=== PATIENT | female | born 1980 | race Caucasian/White ===

== ENCOUNTER 2016-11-21 06:29 | Emergency (ER) | payer BC ==
[~2016-11-21] VITALS: Wt 64.0 kg
[~2016-11-21 06:29] MED LIST: ASC250 PO; FERR240T9 PO; FOLI-49 PO; PREN-39 PO; mvi
[2016-11-21] MEDS ORDERED: SOD CHLORIDE 0.9% 1,000 ML IV STA (06:57)
--- NOTE | 2016-11-21 06:57 | ERD ---
ER Documentation Chief Complaint Date/Time DATE: 11/21/16 TIME: 06:48 Chief Complaint epigastric pain onset last night with vomiting, no dysuria, no vag bleed HPI 36-year-old female ambulatory to the ED complaining of moderate, burning, nonradiating epigastric pain with nausea and multiple episodes of nonbloody, nonbilious emesis since last night. She is trying to get and received Clomid and a hCG. Denies dysuria, polyuria, hematuria or flank pain. No vaginal discharge or bleeding. Denies chest pain or palpitations. No shortness of breath or cough. No skin rash. No relieving or exacerbating factors. No fevers or chills. ROS All systems reviewed and are negative except as per history of present illness. Medications Home Meds Active Scripts Metoclopramide* (Reglan*) 10 Mg Tablet, 10 MG PO Q6 Y for NAUSEA AND/OR VOMITING , #6 TAB Prov:SYL BASURTO MD 11/21/16 Pantoprazole* (Protonix*) 40 Mg Tablet.dr, 40 MG PO DAILY, #10 TAB Prov:SYL BASURTO MD 11/21/16 Reported Medications Ascorbic Acid (Vitamin C) 250 Mg Tab, 250 MG PO DAILY, TAB 07/25/14 Ferrous Gluconate (Iron) 1 Tab Tablet, 1 TAB PO DAILY 07/25/14 Vits W-Ca,Fe,Fa(<1MG) ( Vitamins) 1 Tab Tablet, 1 TAB PO DAILY 07/25/14 Folic Acid* (Folic Acid*) 1 Mg Tablet, 1 MG PO DAILY 11/04/12 Discontinued Reported Medications [mvi] No Conflict Check 11/04/12 Allergies Allergies: Coded Allergies: No Known Allergy (Unverified , 11/21/16) PMhx/Soc Reviewed in chart. As per HPI. History of Surgery: No Anesthesia Reaction: No Hx Neurological Disorder: No Hx Respiratory Disorders: No Hx Cardiac Disorders: No Hx Psychiatric Problems: No Hx Miscellaneous Medical Probl: No Hx Alcohol Use: No Hx Substance Use: No Hx Tobacco Use: No Smoking Status: Never smoker FmHx No stroke or cancer. Physical Exam Vitals Vital Signs Date Time Temp Pulse Resp B/P Pulse Ox O2 Delivery O2 Flow Rate FiO2 11/21/16 11:25 88 16 116/73 100 Room Air 11/21/16 09:00 16 116/63 100 Room Air 11/21/16 06:34 98.2 101 20 145/67 100 Physical Exam Const: Alert, mild distress due to pain. Head: Atraumatic Eyes: Normal Conjunctiva ENT: Normal External Ears, Nose and Mouth. Neck: Full range of motion..~ No meningismus. Resp: Clear to auscultation bilaterally Cardio: Regular rate and rhythm, no murmurs Abd: Soft, mild epigastric tenderness but no rebound or guarding. No right or left lower quadrant tenderness. Skin: No petechiae or rashes Back: No midline or flank tenderness Ext: No cyanosis, or edema Neur: Awake and alert Psych: Normal Mood and Affect Result Diagram: 11/21/1670911/21/16709 Results 24 hrs Laboratory Tests Test 11/21/16 07:10 Alanine Aminotransferase (ALT/SGPT) 36IU/L Albumin 4.3g/dl Albumin/Globulin Ratio 1.22 Alkaline Phosphatase 77IU/L Anion Gap 17 Aspartate Amino Transf (AST/SGOT) 23IU/L Basophils # 0.010^3/ul Basophils % 0.1% Beta HCG, Quantitative 13.6mIU/ml Blood Urea Nitrogen 16mg/dl Calcium Level 9.1mg/dl Carbon Dioxide Level 26mmol/L Chloride Level 101mmol/L Creatinine 0.66mg/dl Direct Bilirubin 0.00mg/dl Eosinophils # 0.010^3/ul Eosinophils % 0.1% Globulin 3.50g/dl Glucose Level 113mg/dl Hematocrit 35.3% Hemoglobin 12.7g/dl Indirect Bilirubin 0.4mg/dl Lipase 88U/L Lymphocytes # 0.810^3/ul Lymphocytes % 6.8% Mean Corpuscular Hemoglobin 31.0pg Mean Corpuscular Hemoglobin Concent 35.9g/dl Mean Corpuscular Volume 86.3fl Mean Platelet Volume 7.5fl Monocytes # 0.410^3/ul Monocytes % 3.8% Neutrophils # 10.310^3/ul Neutrophils % 89.2% Nucleated Red Blood Cells # 0.010^3/ul Nucleated Red Blood Cells % 0.0/100WBC Platelet Count 01368^3/UL Potassium Level 3.7mmol/L Red Blood Count 4.0910^6/ul Red Cell Distribution Width 12.9% Sodium Level 140mmol/L Total Bilirubin 0.4mg/dl Total Protein 7.8g/dl Urine Bilirubin NEGATIVE Urine Clarity CLEAR Urine Color YELLOW Urine Glucose NEGATIVE% Urine Hemoglobin 1+ Urine Ketones 15 Urine Leukocyte Esterase NEGATIVE Urine Microscopic RBC 5-10/HPF Urine Microscopic WBC 2-5/HPF Urine Nitrite NEGATIVE Urine Specific [place] 1.020 Urine Squamous Epithelial Cells FEW Urine Total Protein NEGATIVE Urine Urobilinogen 0.2 E.U./dL Urine pH 7.0 White Blood Count 11.510^3/ul Current Medications Medications (Trade) Dose Ordered Sig/Ashley Route PRN Reason Start Time Stop Time Status Last Admin Dose Admin Sodium Chloride (NS) 1,000 ml @ 1,000 mls/hr Q1H STAT IV 11/21/16 06:57 11/21/16 07:56 DC 11/21/16 07:11 Pantoprazole (Protonix Iv) 40 mg ONCE ONCE IV 11/21/16 08:30 11/21/16 08:31 DC 11/21/16 08:50 Al Hydrox/Mg Hydrox/Simethicone (Mag-Al Plus) 30 ml ONCE ONCE PO 11/21/16 08:30 11/21/16 08:31 DC 11/21/16 08:50 Ondansetron HCl (Zofran Inj) 4 mg ONCE STAT IV 11/21/16 09:23 11/21/16 09:25 DC 11/21/16 09:27 Morphine Sulfate (morphine) 4 mg ONCE STAT IV 11/21/16 09:43 11/21/16 09:44 DC 11/21/16 09:50 IMAGING: PROCEDURE: US Abdomen, limited CLINICAL INDICATION: Right lower quadrant pain TECHNIQUE: Multiple real-time longitudinal and transverse images of the right lower quadrant were obtained. COMPARISON: None FINDINGS: The appendix is not identified. There are normal peristalsing bowel loops seen within the right lower quadrant. The right iliac vessels are patent. No lymphadenopathy is seen. No free fluid is noted within the right abdomen. IMPRESSION: The appendix was not visualized. No definite right lower quadrant abnormality identified. If clinical concern for appendicitis persists, a CT of the abdomen and pelvis with oral and IV contrast can be obtained. RPTAT: .Lissa Gil MD, MD Date Time Electronically viewed and signed by .Lissa Gil MD, MD on 11/21/2016 07 :58 .G/ ROCEDURE: ULTRASOUND LIMITED ABDOMEN CLINICAL INDICATION: 36-year-old female with abdominal pain. TECHNIQUE: Multiple sonographic of the right upper quadrant of the abdomen were obtained. The images were reviewed on a PACS workstation. COMPARISON: None. FINDINGS: The pancreas is partially visualized and is otherwise normal. The liver displays normal echogenicity. The liver measures 14.0 cm in length. No evidence of intrahepatic biliary ductal dilatation is seen. The portal and hepatic veins are unremarkable. The gallbladder demonstrates no wall thickening, sludge, nor stones. No pericholecystic fluid is seen. The common bile duct measures 2.1 mm and is not dilated. The right kidney displays normal echogenicity. The right kidney measures 9.7 x 3.5 cm. No caliectasis or hydronephrosis is seen. No free fluid is seen. IMPRESSION: Unremarkable right upper quadrant abdominal ultrasound. .Gary Telles MD, Date Time Electronically viewed and signed by .Gary Telles MD, MD on 11/21/2016 07:47 .M/ PROCEDURE: US Pelvis CLINICAL INDICATION: Pelvic pain. TECHNIQUE: Transabdominal and transvaginal sonographic evaluation of the pelvis was performed. COMPARISON: None. FINDINGS: Myometrium is heterogeneous in echotexture without fibroids. Endometrium is normal in thickness without a focal abnormality. Normal flow to both ovaries. No adnexal mass. There are normal-appearing follicles within the bilateral ovaries. There is also a corpus luteum cyst within the bilateral ovaries. Small free pelvic fluid is present in the cul-de-sac and adnexa. MEASUREMENTS: Uterus: 8.1 x 4.9 x 6.3 cm, retroverted. Endometrium: 1.1 cm Right ovary size: 3.6 x 2.3 x 2.7 cm Left ovary size: 5.8 x 3.3 x 3.8 cm IMPRESSION: 1. Corpus luteal cysts within the bilateral ovaries with presumed physiologic free fluid in the pelvis. 2. Otherwise, unremarkable examination. RPTAT: EE .Kavin House MD, MD Date Time Electronically viewed and signed by .Kavin House MD, on 11/21/2016 08:12 .C/ Procedures/MDM DOCUMENTS REVIEWED: ED nurse, prior records ED COURSE: Protonix 40 mg IV, Mylanta 30 cc p.o. REEXAMINATION/REEVALUATION: Time: 09:30. Ongoing Nausea and Pain. Morphine 4mg/ Zofran 4mg. Time: 11:02. Doin well pain almost completely resolved. Tolerating PO's. MEDICAL DECISION MAKIN-year-old female ambulatory to the ED complaining of moderate, burning, nonradiating epigastric pain with nausea and multiple episodes of nonbloody, nonbilious emesis since last night. Currently receiving ambulation stimulation therapy. Abdominal pain of uncertain etiology. Appendicitis is unlikely. No ultrasound evidence of cholelithiasis. Follicles and corpus luteum cysts in both ovaries. Possible gastritis/GERD. Possible gastrointestinal side effects from Clomid. Symptoms improved with analgesics, antiemetics, proton pump inhibitors and IV hydration however patient will need mandatory follow-up within 12-24 hours for reevaluation. Counseled patient and family regarding diagnostic workup, diagnosis and need for followup. Understands that the etiology of her symptoms are not established and potential serious etiologies such as appendicitis are still possible and follow-up in the next 12-24 hours is mandatory. Observation Note: Time: 4 hours Family Hx: No Hypertension Evaluation: Multiple exams showed improving symptoms and no evidence of an acute intra-abdominal process Departure Diagnosis: Primary Impression: Acute generalized abdominal pain Additional Impression: Abdominal pain of unknown etiology Condition: Stable Patient Instructions: Abdominal Pain, Unknown Cause, (Female) SYL BASURTO MD Nov 21, 2016 06:57
[2016-11-21 07:46] LABS: ADD UMIC YES; BASOPHILS % 0.1 % (0.0-2.0); EOSINOPHILS % 0.1 % (0.0-7.0); HEMATOCRIT 35.3 % (37.0-47.0); HEMOGLOBIN 12.7 g/dl (12.0-16.0); LYMPHOCYTES # 0.8 10^3/ul (0.8-2.9); LYMPHOCYTES % 6.8 % (15.0-51.0); MEAN CORPUSCULAR HGB CONC 35.9 g/dl (32.0-37.0); MEAN CORPUSCULAR VOLUME 86.3 fl (82.0-101.0); MEAN PLATELET VOLUME 7.5 fl (7.4-10.4); MONOCYTE # 0.4 10^3/ul (0.3-0.9); MONOCYTES % 3.8 % (0.0-11.0); NEUTROPHIL # 10.3 10^3/ul (1.6-7.5); NEUTROPHILS % 89.2 % (39.0-77.0); PLATELET COUNT 237 10^3/UL (140-440); RED BLOOD COUNT 4.09 10^6/ul (4.20-5.40); RED CELL DISTRIBUTION WIDTH 12.9 % (11.5-14.5); UNCORRECTED WBC 11.5 10^3/ul (4.8-10.8); URINE BILIRUBIN (Dip) NEGATIVE (NEGATIVE); URINE BLOOD (Dip) 1+ (NEGATIVE); URINE COLOR YELLOW (YELLOW); URINE GLUCOSE (Dip) NEGATIVE (NEGATIVE); URINE KETONES (Dip) 15 (NEGATIVE); URINE LEUKOCYTE ESTERASE (Dip) NEGATIVE (NEGATIVE); URINE NITRITE (Dip) NEGATIVE (NEGATIVE); URINE TOTAL PROTEIN (Dip) NEGATIVE (NEGATIVE); URINE UROBILINOGEN (Dip) 0.2 E.U./dL (0.1-1.0); WHITE BLOOD COUNT 11.5 10^3/ul (4.8-10.8)
--- NOTE | 2016-11-21 07:48 | RADRPT ---
PROCEDURE: ULTRASOUND LIMITED ABDOMEN CLINICAL INDICATION: 36-year-old female with abdominal pain. TECHNIQUE: Multiple sonographic of the right upper quadrant of the abdomen were obtained. The imag es were reviewed on a PACS workstation. COMPARISON: None. FINDINGS: The pancreas is partially visualized and is otherwise normal. The liver displays normal echogenicity. The liver measures 14.0 cm in length. No evidence of intrah epatic biliary ductal dilatation is seen. The portal and hepatic veins are unremarkable. The gallbladder demonstrates no wall thickening, sludge, nor stones. No pericholecystic fluid is see n. The common bile duct measures 2.1 mm and is not dilated. The right kidney displays normal echogenicity. The right kidney measures 9.7 x 3.5 cm. No caliectasi s or hydronephrosis is seen. No free fluid is seen. IMPRESSION: Unremarkable right upper quadrant abdominal ultrasound. .Gary Telles MD, MD Date Time Electronically viewed and signed by .Gary Telles MD, on 11/21/2016 07:47 .M/
[2016-11-21 07:49] LABS: ALBUMIN 4.3 g/dl (3.3-4.9)
[2016-11-21 07:50] LABS: POTASSIUM 3.7 mmol/L (3.5-5.1)
[2016-11-21 07:52] LABS: ALBUMIN/GLOBULIN RATIO 1.22; BILIRUBIN,INDIRECT 0.4 mg/dl (0-1.1); BILIRUBIN,TOTAL 0.4 mg/dl (0.2-1.3); CONDITION 1; CREATININE 0.66 mg/dl (0.44-1.00); TOTAL PROTEIN 7.8 g/dl (6.1-8.1)
[2016-11-21 07:53] LABS: CALCIUM 9.1 mg/dl (8.4-10.2)
[2016-11-21 07:58] LABS: SQUAMOUS EPITHELIAL CELL,UR FEW
--- NOTE | 2016-11-21 07:59 | RADRPT ---
PROCEDURE: US Abdomen, limited CLINICAL INDICATION: Right lower quadrant pain TECHNIQUE: Multiple real-time longitudinal and transverse images of the right lower quadrant were obtained. COMPARISON: None FINDINGS: The appendix is not identified. There are normal peristalsing bowel loops seen within the right low er quadrant. The right iliac vessels are patent. No lymphadenopathy is seen. No free fluid is not ed within the right abdomen. IMPRESSION: The appendix was not visualized. No definite right lower quadrant abnormality identified. If clini dalila concern for appendicitis persists, a CT of the abdomen and pelvis with oral and IV contrast can be obtained. RPTAT: HH .Lissa Gil MD, MD Date Time Electronically viewed and signed by .Lissa Gil MD, on 11/21/2016 07:58 .G/
--- NOTE | 2016-11-21 08:09 | RADRPT ---
PROCEDURE: US Pelvis CLINICAL INDICATION: Pelvic pain. TECHNIQUE: Transabdominal and transvaginal sonographic evaluation of the pelvis was performed. COMPARISON: None. FINDINGS: Myometrium is heterogeneous in echotexture without fibroids. Endometrium is normal in thickness without a focal abnormality. Normal flow to both ovaries. No adnexal mass. There are normal-appearing follicles within the bila teral ovaries. There is also a corpus luteum cyst within the bilateral ovaries. Small free pelvic fluid is present in the cul-de-sac and adnexa. MEASUREMENTS: Uterus: 8.1 x 4.9 x 6.3 cm, retroverted. Endometrium: 1.1 cm Right ovary size: 3.6 x 2.3 x 2.7 cm Left ovary size: 5.8 x 3.3 x 3.8 cm IMPRESSION: 1. Corpus luteal cysts within the bilateral ovaries with presumed physiologic free fluid in the pel vis. 2. Otherwise, unremarkable examination. RPTAT: EE .Kavin House MD, MD Date Time Electronically viewed and signed by .Kavin House MD, MD on 11/21/2016 08:12 .C/
[2016-11-21] MEDS ORDERED: AL HYDROX/MG HYDROX/SIMETH 30 ML CUP PO ONE (08:30)
[2016-11-21] MEDS ORDERED: PANTOPRAZOLE 40 MG INJ IV ONE (08:30)
[2016-11-21] MEDS ORDERED: ONDANSETRON 4 MG INJ IV STA (09:23)
[2016-11-21] MEDS ORDERED: morphine 4 MG/ML VIAL IV STA (09:43)
[2016-11-21] MEDS ORDERED: METO10TA92 PO (11:14)
[2016-11-21] MEDS ORDERED: PANT40TA3 PO (11:14)
[2016-11-21 11:25] VITALS: BP 116/73; PULSE 88; RESP 16
== END 2016-11-21 11:26 | disposition home or self-care (01) ==
LOC: E/R 06:29
DX: R10.84 Generalized abdominal pain (principal); R10.2 Pelvic and perineal pain
CPT/HCPCS: 36415; 76705; 76830; 76856; 80053; 81001; 83690; 84702; 85025; 96374; 96375; 99285; C9113; J2270; J2405; J7030; 81003

== ENCOUNTER 2017-02-01 23:37 | Emergency (ER) | payer BC ==
[~2017-02-01] VITALS: Ht 162.6 cm; Wt 69.0 kg
[~2017-02-01 23:37] MED LIST changes: +METO10TA92 PO; +PANT40TA3 PO; -mvi
[2017-02-01 23:43] VITALS: Ht 162.6 cm; Wt 69.0 kg
--- NOTE | 2017-02-02 01:01 | ERD ---
ER Documentation Chief Complaint Date/Time DATE: 02/02/17 TIME: 01:00 Chief Complaint LLQ AP PAIN SINCE 9PM 5 WKS , NO RELIEF FROM SIMETHICONE HPI 37-year-old female presents to emergency department for complaints of lower abdominal pain, more left lower quadrant started tonight. Patient discussed the pain as sharp pain, 6/10 scale, patient also had upper abdominal pain, was relieved after taking simethicone at home. Patient had 2 episodes of vomiting. Patient is approximately 5 weeks . Patient LMP 12/27/2016. Patient denies any vaginal bleeding. Patient denies hematuria or dysuria. Patient denies any diarrhea or constipation. ROS All systems reviewed and are negative except as per history of present illness. Medications Home Meds Active Scripts Metoclopramide* (Reglan*) 10 Mg Tablet, 10 MG PO Q6 Y for NAUSEA AND/OR VOMITING , #6 TAB Prov:SYL BASURTO MD 11/21/16 Pantoprazole* (Protonix*) 40 Mg Tablet.dr, 40 MG PO DAILY, #10 TAB Prov:SYL BASURTO MD 11/21/16 Reported Medications Ascorbic Acid (Vitamin C) 250 Mg Tab, 250 MG PO DAILY, TAB 07/25/14 Ferrous Gluconate (Iron) 1 Tab Tablet, 1 TAB PO DAILY 07/25/14 Vits W-Ca,Fe,Fa(<1MG) ( Vitamins) 1 Tab Tablet, 1 TAB PO DAILY 07/25/14 Folic Acid* (Folic Acid*) 1 Mg Tablet, 1 MG PO DAILY 11/04/12 Allergies Allergies: Coded Allergies: No Known Allergy (Unverified , 02/01/17) PMhx/Soc Medical and Surgical Hx: pt denies Surgical Hx History of Surgery: No Anesthesia Reaction: No Hx Neurological Disorder: No Hx Respiratory Disorders: No Hx Cardiac Disorders: No Hx Psychiatric Problems: No Hx Miscellaneous Medical Probl: Yes (anemia) Hx Alcohol Use: No Hx Substance Use: No Hx Tobacco Use: No Smoking Status: Never smoker FmHx Family History: No coronary disease, No diabetes, No other Physical Exam Vitals Vital Signs Date Time Temp Pulse Resp B/P Pulse Ox O2 Delivery O2 Flow Rate FiO2 02/01/17 23:43 98.7 100 20 116/56 100 Physical Exam GENERAL: The patient is well developed and appropriate for usual state of health, in no apparent distress. CHEST: Clear to auscultation bilaterally. There are no rales, wheezes or rhonchi. HEART: Regular rate and rhythm. No murmurs, clicks, rubs or gallops. No S3 or S4. ABDOMEN: Soft, nontender and nondistended. Good bowel sounds. No rebound or guarding. No gross peritonitis. No gross organomegaly or masses. No Willis sign or McBurney point tenderness. BACK: No midline or flank tenderness. EXTREMITIES: Equal pulses bilaterally. There is no peripheral clubbing, cyanosis or edema. No focal swelling or erythema. Full range of motion. Grossly neurovascularly intact. NEURO: Alert and oriented. Cranial nerves 2-12 intact. Motor strength in all 4 extremities with 5/5 strength. Sensation grossly intact. Normal speech and gait. SKIN: There is no apparent rash or petechia. The skin is warm and dry. HEMATOLOGIC AND LYMPHATIC: There is no evidence of excessive bruising or lymphedema. No gross cervical, axillary, or inguinal lymphadenopathy. Result Diagram: 02/02/17 01002/02/17 0102 Results 24 hrs Laboratory Tests Test 02/02/17 00:35 02/02/17 01:02 Urine Color LT. YELLOW Urine Clarity CLEAR Urine pH 6.0 Urine Specific [place] 1.020 Urine Ketones 15 Urine Nitrite NEGATIVE Urine Bilirubin NEGATIVE Urine Urobilinogen 0.2 E.U./dL Urine Leukocyte Esterase NEGATIVE Urine Microscopic RBC 0-2/HPF Urine Microscopic WBC 0-2/HPF Urine Squamous Epithelial Cells MODERATE Urine Bacteria OCCASIONAL Urine Hemoglobin TRACE Urine Glucose NEGATIVE% Urine Total Protein NEGATIVE White Blood Count 12.610^3/ul Red Blood Count 3.8710^6/ul Hemoglobin 11.6g/dl Hematocrit 34.0% Mean Corpuscular Volume 87.9fl Mean Corpuscular Hemoglobin 30.0pg Mean Corpuscular Hemoglobin Concent 34.1g/dl Red Cell Distribution Width 12.2% Platelet Count 30699^3/UL Mean Platelet Volume 8.8fl Neutrophils % 85.7% Lymphocytes % 7.3% Monocytes % 5.8% Eosinophils % 0.5% Basophils % 0.2% Nucleated Red Blood Cells % 0.0/100WBC Neutrophils # 10.810^3/ul Lymphocytes # 0.910^3/ul Monocytes # 0.710^3/ul Eosinophils # 0.110^3/ul Basophils # 0.010^3/ul Nucleated Red Blood Cells # 0.010^3/ul Sodium Level 136mmol/L Potassium Level 3.4mmol/L Chloride Level 104mmol/L Carbon Dioxide Level 24mmol/L Anion Gap 11 Blood Urea Nitrogen 14mg/dl Creatinine 0.71mg/dl Glucose Level 109mg/dl Calcium Level 8.9mg/dl Total Bilirubin 0.4mg/dl Direct Bilirubin 0.00mg/dl Indirect Bilirubin 0.4mg/dl Aspartate Amino Transf (AST/SGOT) 21IU/L Alanine Aminotransferase (ALT/SGPT) 27IU/L Alkaline Phosphatase 78IU/L Total Protein 7.6g/dl Albumin 4.0g/dl Globulin 3.60g/dl Albumin/Globulin Ratio 1.11 Beta HCG, Quantitative 8967.6mIU/ml PROCEDURE: US OB. CLINICAL INDICATION: . Pain. TECHNIQUE: Multiple sonographic images of the pelvis were obtained. Transabdominal and transvaginal views of the pelvis are available for review. The images were reviewed on a PACS workstation. COMPARISON: 11/21/2016 FINDINGS: An intrauterine probable early gestational sac at 6.7 mm is identified, correspond to 5 weeks 2 days size.. No pole or cardiac activity is detected. No subchorionic hemorrhage is identified. Uterus is otherwise unremarkable. Bilateral complex ovarian hemorrhagic cysts are redemonstrated. Right ovarian complex cyst is 2.2 x 2.1 x 2.1 cm, slightly decreased in size. Left ovarian cyst is 2.3 x 1.4 x 1.4 cm, also slightly decreased.. The ovaries are otherwise unremarkable with vascular flow identified.. There is no abnormal adnexal mass. There is a moderate amount of complex free fluid throughout the pelvis, increased as compared prior study. IMPRESSION: Intrauterine sac-like structure at 5 weeks 2 days size without pole or heart motion, likely represents an early intrauterine too small to identify a pole. Although no adnexal masses identified, there is a moderate amount of complex likely hemorrhagic pelvic free fluid. Although there are bilateral ovarian cysts, decreased in size from prior study and may be the source of the pelvic fluid, ectopic cannot be excluded. Recommend correlation with quantitative beta HCG and close follow-up as a pole should be visible within the next several days. RPTAT: HMVK .Kevin Warner MD, MD Date Time Electronically viewed and signed by .Kevin Warner MD, on 02/02/2017 02:08 .K/ CC: CHUY GAMA NP Procedures/MDM Medical Decision Making: Patient's pelvic pain nonspecific at this time, possible with her growing . Patient pain has resolved, it resolved after taking simethicone. Patient's pain may also had pain in the epigastric area, can be gastritis. Patient has a viable intrauterine without pole, possible indication of early . Beta HCG is normal for patient . There is low suspicion for abdominal emergencies at this time. Patients abdominal exam is normal at this time. Patients radiology exam does not show any abdominal emergencies at this time. There is low suspicion for appendicitis, cholecystitis, abdominal aortic aneurysms or peritonitis at this time. There is low suspicion for sepsis. Patient appears well and is hemodynamically stable. Disposition: Home. Condition: Stable Prescription Zofran, Pepcid, continue Tylenol Instructions: Patient is advised to take medications as prescribed. Patient is advised to rest, increase fluid intake and do see a r developer specialist within 1-2 days, repeat beta hCG quantitative in 2 days him a ectopic precautions, return for any worsening pain. Departure Diagnosis: Primary Impression: Pelvic pain Additional Impression: Intrauterine Condition: Stable Patient Instructions: Pelvic Pain, Unknown Cause CHUY GAMA NP Feb 02, 2017 01:01
[2017-02-02 01:09] LABS: ADD SCAN DIFF NO
[2017-02-02 01:12] LABS: BASOPHILS % 0.2 % (0.0-2.0); EOSINOPHILS # 0.1 10^3/ul (0.0-0.5); EOSINOPHILS % 0.5 % (0.0-7.0); HEMOGLOBIN 11.6 g/dl (12.0-16.0); LYMPHOCYTES # 0.9 10^3/ul (0.8-2.9); LYMPHOCYTES % 7.3 % (15.0-51.0); MEAN CORPUSCULAR HGB CONC 34.1 g/dl (32.0-37.0); MEAN CORPUSCULAR VOLUME 87.9 fl (82.0-101.0); MEAN PLATELET VOLUME 8.8 fl (7.4-10.4); MONOCYTE # 0.7 10^3/ul (0.3-0.9); MONOCYTES % 5.8 % (0.0-11.0); NEUTROPHIL # 10.8 10^3/ul (1.6-7.5); NEUTROPHILS % 85.7 % (39.0-77.0); PLATELET COUNT 221 10^3/UL (140-415); RED BLOOD COUNT 3.87 10^6/ul (4.20-5.40); RED CELL DISTRIBUTION WIDTH 12.2 % (11.5-14.5); WHITE BLOOD COUNT 12.6 10^3/ul (4.8-10.8)
[2017-02-02 01:27] LABS: ALBUMIN/GLOBULIN RATIO 1.11; BILIRUBIN,INDIRECT 0.4 mg/dl (0-1.1); BILIRUBIN,TOTAL 0.4 mg/dl (0.2-1.3); CALCIUM 8.9 mg/dl (8.4-10.2); CREATININE 0.71 mg/dl (0.44-1.00); POTASSIUM 3.4 mmol/L (3.5-5.1); TOTAL PROTEIN 7.6 g/dl (6.1-8.1)
[2017-02-02 01:30] LABS: ADD UMIC YES; URINE BILIRUBIN (Dip) NEGATIVE (NEGATIVE); URINE BLOOD (Dip) TRACE (NEGATIVE); URINE COLOR LT. YELLOW (YELLOW); URINE GLUCOSE (Dip) NEGATIVE (NEGATIVE); URINE KETONES (Dip) 15 (NEGATIVE); URINE LEUKOCYTE ESTERASE (Dip) NEGATIVE (NEGATIVE); URINE NITRITE (Dip) NEGATIVE (NEGATIVE); URINE TOTAL PROTEIN (Dip) NEGATIVE (NEGATIVE); URINE UROBILINOGEN (Dip) 0.2 E.U./dL (0.1-1.0)
[2017-02-02 01:42] LABS: BACTERIA,URINE OCCASIONAL; SQUAMOUS EPITHELIAL CELL,UR MODERATE; URINE RBCS 0-2 /HPF (0)
--- NOTE | 2017-02-02 02:08 | RADRPT ---
PROCEDURE: US OB. CLINICAL INDICATION: . Pain. TECHNIQUE: Multiple sonographic images of the pelvis were obtained. Transabdominal and transvagin al views of the pelvis are available for review. The images were reviewed on a PACS workstation. COMPARISON: 11/21/2016 FINDINGS: An intrauterine probable early gestational sac at 6.7 mm is identified, correspond to 5 weeks 2 days size.. No pole or cardiac activity is detected. No subchorionic hemorrhage is identified. Uterus is otherwise unremarkable. Bilateral complex ovarian hemorrhagic cysts are redemonstrated. Right ovarian complex cyst is 2.2 x 2.1 x 2.1 cm, slightly decreased in size. Left ovarian cyst is 2.3 x 1.4 x 1.4 cm, also slightly d ecreased.. The ovaries are otherwise unremarkable with vascular flow identified.. There is no abnor mal adnexal mass. There is a moderate amount of complex free fluid throughout the pelvis, increased as compared prior study. IMPRESSION: Intrauterine sac-like structure at 5 weeks 2 days size without pole or heart motion, likely re presents an early intrauterine too small to identify a pole. Although no adnexal ma sses identified, there is a moderate amount of complex likely hemorrhagic pelvic free fluid. Althou gh there are bilateral ovarian cysts, decreased in size from prior study and may be the source of th e pelvic fluid, ectopic cannot be excluded. Recommend correlation with quantitative beta HCG and close follow-up as a pole should be visible within the next several days. RPTAT: HMVK .Kevin Warner MD, Date Time Electronically viewed and signed by .Kevin Warner MD, on 02/02/2017 02:08 .K/
[2017-02-02] MEDS ORDERED: FAMO-18 PO (03:02)
[2017-02-02] MEDS ORDERED: ONDA4TAB14 PO (03:02)
[2017-02-02 03:08] VITALS: BP 122/55; PULSE 105; RESP 18
== END 2017-02-02 03:09 | disposition home or self-care (01) ==
LOC: FTE 23:37
DX: O26.891 Other specified pregnancy related conditions, first trimester (principal); R10.2 Pelvic and perineal pain; Z3A.01 Less than 8 weeks gestation of pregnancy
CPT/HCPCS: 36415; 76801; 76817; 80053; 81001; 81003; 84702; 85025; 86900; 86901

== ENCOUNTER → 2017-03-22 | Outpatient (CLI) | payer BC ==
[~2017-03-22] MED LIST changes: +FAMO-18 PO; +ONDA4TAB14 PO; +RANI150T9 PO; +SIME180C36 PO
[2017-03-25 17:36] LABS: ADD SCAN DIFF NO
[2017-03-25 17:48] LABS: BASOPHILS % 0.2 % (0.0-2.0); EOSINOPHILS # 0.3 10^3/ul (0.0-0.5); EOSINOPHILS % 4.3 % (0.0-7.0); HEMATOCRIT 31.9 % (37.0-47.0); HEMOGLOBIN 10.7 g/dl (12.0-16.0); LYMPHOCYTES # 1.6 10^3/ul (0.8-2.9); LYMPHOCYTES % 26.9 % (15.0-51.0); MEAN CORPUSCULAR HEMOGLOBIN 29.8 pg (29.0-33.0); MEAN CORPUSCULAR HGB CONC 33.5 g/dl (32.0-37.0); MEAN CORPUSCULAR VOLUME 88.9 fl (82.0-101.0); MEAN PLATELET VOLUME 8.7 fl (7.4-10.4); MONOCYTE # 0.5 10^3/ul (0.3-0.9); NEUTROPHIL # 3.5 10^3/ul (1.6-7.5); NEUTROPHILS % 59.9 % (39.0-77.0); PLATELET COUNT 296 10^3/UL (140-415); RED BLOOD COUNT 3.59 10^6/ul (4.20-5.40); RED CELL DISTRIBUTION WIDTH 12.6 % (11.5-14.5); WHITE BLOOD COUNT 5.9 10^3/ul (4.8-10.8)
[2017-03-25 17:50] LABS: ADD UMIC YES; UR BILIRUBIN (Dip) NEGATIVE (NEGATIVE); UR BLOOD (Dip) TRACE (NEGATIVE); UR COLOR LT. YELLOW (YELLOW); UR GLUCOSE (Dip) NEGATIVE (NEGATIVE); UR KETONES (Dip) NEGATIVE (NEGATIVE); UR LEUKOCYTE ESTERASE (Dip) 1+ (NEGATIVE); UR NITRITE (Dip) NEGATIVE (NEGATIVE); UR TOTAL PROTEIN (Dip) NEGATIVE (NEGATIVE); UR UROBILINOGEN (Dip) 0.2 E.U./dL (0.1-1.0)
[2017-03-25 18:18] LABS: UR CLARITY HAZY (CLEAR)
[2017-03-25 18:19] LABS: UR BACTERIA FEW; UR SQUAMOUS EPITHELIAL CELL MANY
[2017-03-25 18:38] LABS: THYROID STIMULATING HORMONE 0.519 MIU/L (0.465-4.680)
[2017-03-27 12:22] LABS: RUBELLA ANTIBODY - IGG 4.98 index
== END | disposition home or self-care (01) ==
LOC: LAB 20:47
PROVIDERS: ATTEND Obstetrics & Gynecology
DX: Z34.90 Encounter for supervision of normal pregnancy, unspecified, unspecified trimester (principal); O09.529 Supervision of elderly multigravida, unspecified trimester; Z3A.00 Weeks of gestation of pregnancy not specified
CPT/HCPCS: 81001; 84443; 85025; 86592; 86703; 86762; 86803; 86885; 87340

== ENCOUNTER 2017-04-04 21:30 | Emergency (ER) | payer BC ==
[~2017-04-04] VITALS: Ht 162.6 cm; Wt 73.5 kg
[~2017-04-04 21:30] MED LIST changes: -RANI150T9 PO; -SIME180C36 PO
[2017-04-04 21:47] VITALS: Ht 162.6 cm; Wt 73.5 kg
[2017-04-04 22:27] LABS: URINE BLOOD (Dip) POC 3+ (NEGATIVE)
[2017-04-04] MEDS ORDERED: LIDOCAINE/MYLANTA 40 ML BTL PO STA (22:48)
[2017-04-04] MEDS ORDERED: FAMOTIDINE 20 MG INJ IV STA (22:48)
[2017-04-04] MEDS ORDERED: SOD CHLORIDE 0.9% 1,000 ML IV STA (22:48)
[2017-04-04 23:13] LABS: ADD SCAN DIFF NO
[2017-04-04 23:19] LABS: BASOPHILS % 0.1 % (0.0-2.0); EOSINOPHILS # 0.1 10^3/ul (0.0-0.5); EOSINOPHILS % 0.5 % (0.0-7.0); HEMATOCRIT 32.6 % (37.0-47.0); HEMOGLOBIN 10.7 g/dl (12.0-16.0); LYMPHOCYTES # 1.2 10^3/ul (0.8-2.9); LYMPHOCYTES % 7.8 % (15.0-51.0); MEAN CORPUSCULAR HEMOGLOBIN 29.1 pg (29.0-33.0); MEAN CORPUSCULAR HGB CONC 32.8 g/dl (32.0-37.0); MEAN CORPUSCULAR VOLUME 88.6 fl (82.0-101.0); MEAN PLATELET VOLUME 9.1 fl (7.4-10.4); MONOCYTE # 1.3 10^3/ul (0.3-0.9); MONOCYTES % 8.3 % (0.0-11.0); NEUTROPHIL # 12.4 10^3/ul (1.6-7.5); NEUTROPHILS % 82.2 % (39.0-77.0); PLATELET COUNT 293 10^3/UL (140-415); RED BLOOD COUNT 3.68 10^6/ul (4.20-5.40); RED CELL DISTRIBUTION WIDTH 12.9 % (11.5-14.5)
[2017-04-04 23:24] LABS: ADD UMIC YES; URINE BILIRUBIN (Dip) NEGATIVE (NEGATIVE); URINE BLOOD (Dip) 2+ (NEGATIVE); URINE COLOR LT. YELLOW (YELLOW); URINE GLUCOSE (Dip) NEGATIVE (NEGATIVE); URINE KETONES (Dip) NEGATIVE (NEGATIVE); URINE LEUKOCYTE ESTERASE (Dip) NEGATIVE (NEGATIVE); URINE NITRITE (Dip) NEGATIVE (NEGATIVE); URINE TOTAL PROTEIN (Dip) NEGATIVE (NEGATIVE); URINE UROBILINOGEN (Dip) 0.2 E.U./dL (0.1-1.0)
[2017-04-04 23:45] LABS: ALBUMIN 4.2 g/dl (3.3-4.9); ALBUMIN/GLOBULIN RATIO 1.2; BILIRUBIN,INDIRECT 0.4 mg/dl (0-1.1); BILIRUBIN,TOTAL 0.4 mg/dl (0.2-1.3); CALCIUM 9.5 mg/dl (8.4-10.2); CREATININE 0.6 mg/dl (0.44-1.00); POTASSIUM 3.6 mmol/L (3.5-5.1); TOTAL PROTEIN 7.7 g/dl (6.1-8.1)
[2017-04-04 23:53] LABS: SQUAMOUS EPITHELIAL CELL,UR FEW
--- NOTE | 2017-04-05 00:27 | RADRPT ---
PROCEDURE: US Abdomen limited CLINICAL INDICATION: Abdominal pain TECHNIQUE: Multiple real-time images were acquired of the patient's right lower quadrant of the ab domen utilizing a high resolution transducer and a total of 10 static images are submitted to the [facility] MESSER for review. COMPARISON: None available FINDINGS: The appendix is not visualized. There is a small amount of free fluid. No adenopathy, mass or cyst is demonstrated. There is no report of rebound tenderness elicited by the marketing administrative assistant. RPTAT:HJJR IMPRESSION: Small amount of nonspecific free fluid in the anterior right lower quadrant. The appendix is not vis ualized. Physician Zachery Date Time Electronically viewed and signed by Physician Zachery on 04/05/2017 00:27 JR/
[2017-04-05 00:29] VITALS: BP 120/69; PULSE 98; RESP 16
--- NOTE | 2017-04-05 00:31 | RADRPT ---
PROCEDURE: Obstetrical ultrasound greater than 14 weeks CLINICAL INDICATION: Vaginal bleeding. TECHNIQUE: Real time sonographic imaging of the gravid uterus is performed transabdominally and mu ltiple static fierro scale and Doppler images are submitted for review as are measurements. The image s are reviewed on the PACS. COMPARISON: 02/02/2017 FINDINGS: There is a single living intrauterine gestation in cephalic presentation. The heart beat is estimated at 157 bpm. The measurements are as follows: BPD:2.95 cm HC:10.53 cm AC:8.72 cm FL:1.54 cm Estimated gestational age is 15 weeks, appropriate interval growth compared to 02/02/2017. The fatimah mated date of delivery is 09/26/2017. The estimated weight is 107 grams. Placenta is anterior and grade 0. There is no evidence of placenta previa or abruption. The amniotic fluid is normal, maximal vertical pocket estimated at 5.42 cm. RPTAT:HJJR IMPRESSION: 1. Single viable intrauterine gestation estimated at 15 weeks, appropriate interval growth compared to 02/02/2017 with the estimated date of delivery 09/26/2017. 2. Anterior grade 0 placenta without abruption or placenta previa. Physician Zachery Date Time Electronically viewed and signed by Physician Zachery on 04/05/2017 00:30 JR/
--- NOTE | 2017-04-05 00:35 | ERD ---
ER Documentation Chief Complaint Date/Time DATE: 04/05/17 TIME: 00:34 Chief Complaint 14 weeks, abd pain since Wednesday. -vag bleed "Feels like gas" HPI 29-year-old female comes complaints of abdominal pain since Wednesday. She said it is mainly epigastric in location. Says she does not feels like gas. Mild nausea but no vomiting. No fevers no chills. No other current complaints. Pain is mild to moderate intensity. No vaginal bleeding. No other current issues. ROS All systems reviewed and are negative except as per history of present illness. Medications Home Meds Active Scripts Ondansetron (Ondansetron Odt) 4 Mg Tab.rapdis, 4 MG PO Q8 Y for NAUSEA AND/OR VOMITING, #30 TAB Prov:CHUY GAMA NP 02/02/17 Famotidine* (Pepcid*) 20 Mg Tablet, 20 MG PO BID, #60 TAB Prov:CHUY GAMA NP 02/02/17 Metoclopramide* (Reglan*) 10 Mg Tablet, 10 MG PO Q6 Y for NAUSEA AND/OR VOMITING , #6 TAB Prov:SYL BASURTO MD 11/21/16 Pantoprazole* (Protonix*) 40 Mg Tablet.dr, 40 MG PO DAILY, #10 TAB Prov:SYL BASURTO MD 11/21/16 Reported Medications Ascorbic Acid (Vitamin C) 250 Mg Tab, 250 MG PO DAILY, TAB 07/25/14 Ferrous Gluconate (Iron) 1 Tab Tablet, 1 TAB PO DAILY 07/25/14 Vits W-Ca,Fe,Fa(<1MG) ( Vitamins) 1 Tab Tablet, 1 TAB PO DAILY 07/25/14 Folic Acid* (Folic Acid*) 1 Mg Tablet, 1 MG PO DAILY 11/04/12 Allergies Allergies: Coded Allergies: No Known Allergy (Unverified , 02/01/17) PMhx/Soc Medical and Surgical Hx: pt denies Medical Hx, pt denies Surgical Hx History of Surgery: No Anesthesia Reaction: No Hx Neurological Disorder: No Hx Respiratory Disorders: No Hx Cardiac Disorders: No Hx Psychiatric Problems: No Hx Miscellaneous Medical Probl: Yes (anemia) Hx Alcohol Use: No Hx Substance Use: No Hx Tobacco Use: No Smoking Status: Never smoker Physical Exam Vitals Vital Signs Date Time Temp Pulse Resp B/P Pulse Ox O2 Delivery O2 Flow Rate FiO2 04/05/17 00:29 98 16 120/69 99 04/04/17 22:35 99 17 105/78 100 Room Air 04/04/17 21:47 99.3 121 18 127/77 98 Physical Exam Const: [] Head: Atraumatic Eyes: Normal Conjunctiva ENT: Normal External Ears, Nose and Mouth. Neck: Full range of motion..~ No meningismus. Resp: Clear to auscultation bilaterally Cardio: Regular rate and rhythm, no murmurs Abd: Soft, non tender, non distended. Normal bowel sounds Skin: No petechiae or rashes Back: No midline or flank tenderness Ext: No cyanosis, or edema Neur: Awake and alert Psych: Normal Mood and Affect Result Diagram: 04/04/17222704/04/172227 Results 24 hrs Laboratory Tests Test 04/04/17 22:00 04/04/17 22:28 04/04/17 22:29 Urine Color LT. YELLOW Urine Clarity CLEAR Urine pH 6.0 Urine Specific [place] <=1.005 Urine Ketones NEGATIVE Urine Nitrite NEGATIVE Urine Bilirubin NEGATIVE Urine Urobilinogen 0.2 E.U./dL Urine Leukocyte Esterase NEGATIVE Urine Microscopic RBC 2-5/HPF Urine Microscopic WBC 0-2/HPF Urine Squamous Epithelial Cells FEW Urine Hemoglobin 2+ Urine Glucose NEGATIVE% Urine Total Protein NEGATIVE White Blood Count 15.010^3/ul Red Blood Count 3.6810^6/ul Hemoglobin 10.7g/dl Hematocrit 32.6% Mean Corpuscular Volume 88.6fl Mean Corpuscular Hemoglobin 29.1pg Mean Corpuscular Hemoglobin Concent 32.8g/dl Red Cell Distribution Width 12.9% Platelet Count 75932^3/UL Mean Platelet Volume 9.1fl Neutrophils % 82.2% Lymphocytes % 7.8% Monocytes % 8.3% Eosinophils % 0.5% Basophils % 0.1% Nucleated Red Blood Cells % 0.0/100WBC Neutrophils # 12.410^3/ul Lymphocytes # 1.210^3/ul Monocytes # 1.310^3/ul Eosinophils # 0.110^3/ul Basophils # 0.010^3/ul Nucleated Red Blood Cells # 0.010^3/ul Sodium Level 136mmol/L Potassium Level 3.6mmol/L Chloride Level 104mmol/L Carbon Dioxide Level 22mmol/L Anion Gap 14 Blood Urea Nitrogen 6mg/dl Creatinine 0.60mg/dl Glucose Level 89mg/dl Calcium Level 9.5mg/dl Total Bilirubin 0.4mg/dl Direct Bilirubin 0.00mg/dl Indirect Bilirubin 0.4mg/dl Aspartate Amino Transf (AST/SGOT) 18IU/L Alanine Aminotransferase (ALT/SGPT) 24IU/L Alkaline Phosphatase 82IU/L Total Protein 7.7g/dl Albumin 4.2g/dl Globulin 3.50g/dl Albumin/Globulin Ratio 1.20 Lipase 28U/L Bedside Urine pH (LAB) 5.5 Bedside Urine Protein (LAB) Negative Bedside Urine Glucose (UA) Negative Bedside Urine Ketones (LAB) Negative Bedside Urine Blood 3+ Bedside Urine Nitrite (LAB) Negative Bedside Urine Leukocyte Esterase (L Negative Current Medications Medications (Trade) Dose Ordered Sig/Ashley Route PRN Reason Start Time Stop Time Status Last Admin Dose Admin Famotidine (Pepcid Iv) 20 mg ONCE STAT IV 04/04/17 22:48 04/04/17 22:51 DC 04/04/17 22:58 Miscellaneous Medication 40 ml 40 ml ONCE STAT PO 04/04/17 22:48 04/04/17 22:51 DC 04/04/17 22:58 Sodium Chloride (NS) 1,000 ml @ 1,000 mls/hr Q1H STAT IV 04/04/17 22:48 04/04/17 23:47 DC 04/04/17 22:58 Procedures/MDM Medical decision-making: Very pleasant female comes in with epigastric abdominal pain likely related to gas. She feels better post GI consult. Patient will be discharged home with Zantac and simethicone. Follow-up in 8 hours for serial abdominal exams. Departure Diagnosis: Primary Impression: Abdominal pain Abdominal location: generalized Qualified Code: R10.84 - Generalized abdominal pain Condition: Stable WENDY TRAMMELL Apr 05, 2017 00:35
[2017-04-05] MEDS ORDERED: RANI150T9 PO (00:37)
[2017-04-05] MEDS ORDERED: SIME180C36 PO (00:37)
[2017-04-05 00:48] VITALS: TEMP 98.8
== END 2017-04-05 01:04 | disposition home or self-care (01) ==
LOC: E/R 21:30
DX: O26.892 Other specified pregnancy related conditions, second trimester (principal); R10.84 Generalized abdominal pain; Z3A.15 15 weeks gestation of pregnancy
CPT/HCPCS: 36415; 76705; 76805; 80053; 81001; 83690; 85025; 96374; 99285; J7030; 81003

== ENCOUNTER 2017-05-10 06:00 | Inpatient (IN) | payer BC ==
[~2017-05-10] VITALS: Ht 162.6 cm; Wt 72.2 kg
[~2017-05-10 06:00] MED LIST changes: -ASC250 PO; +ASCO250T96 PO; -FAMO-18 PO; +FAMO-96 PO; +RANI150T9 PO; +SIME180C36 PO
[2017-05-10 06:40] VITALS: Ht 162.6 cm; Wt 72.2 kg
[2017-05-10 06:44] VITALS: BP 123/62; PULSE 86; RESP 18
[2017-05-10] MEDS ORDERED: OXYTOCIN 30 UNITS/LR 500 ML IV SCH ×2 (07:00)
[2017-05-10] MEDS ORDERED: LACTATED RINGER'S 1,000 ML IV PRN (07:00)
[2017-05-10] MEDS ORDERED: LIDOCAINE 1% (MPF) 30 ML INJ INJ PRN (07:00)
[2017-05-10] MEDS ORDERED: MISOPROSTOL 200 MCG TAB PR PRN (07:00)
[2017-05-10] MEDS ORDERED: CARBOPROST 250 MCG INJ IM PRN (07:00)
[2017-05-10] MEDS ORDERED: OXYTOCIN 30 UNITS/LR 500 ML IV PRN (07:00)
[2017-05-10] MEDS ORDERED: IBUPROFEN 600 MG TAB PO PRN (07:00)
[2017-05-10] MEDS ORDERED: METHYLERGONOVINE 0.2 MG INJ IM PRN (07:00)
[2017-05-10] MEDS ORDERED: BUTORPHANOL 2 MG INJ IV PRN (07:00)
[2017-05-10] MEDS: LACTATED RINGER'S 1,000 ML IV SCH ×3 (07:05→20:59)
[2017-05-10 07:45] LABS: ADD SCAN DIFF NO
[2017-05-10 07:49] LABS: BASOPHILS % 0.3 % (0.0-2.0); EOSINOPHILS # 0.2 10^3/ul (0.0-0.5); EOSINOPHILS % 2.7 % (0.0-7.0); HEMATOCRIT 29.8 % (37.0-47.0); HEMOGLOBIN 10.1 g/dl (12.0-16.0); LYMPHOCYTES # 1.7 10^3/ul (0.8-2.9); LYMPHOCYTES % 23.6 % (15.0-51.0); MEAN CORPUSCULAR HEMOGLOBIN 29.8 pg (29.0-33.0); MEAN CORPUSCULAR HGB CONC 33.9 g/dl (32.0-37.0); MEAN CORPUSCULAR VOLUME 87.9 fl (82.0-101.0); MONOCYTE # 0.5 10^3/ul (0.3-0.9); MONOCYTES % 6.1 % (0.0-11.0); NEUTROPHIL # 4.9 10^3/ul (1.6-7.5); NEUTROPHILS % 66.5 % (39.0-77.0); PLATELET COUNT 260 10^3/UL (140-415); RED BLOOD COUNT 3.39 10^6/ul (4.20-5.40); WHITE BLOOD COUNT 7.4 10^3/ul (4.8-10.8)
[2017-05-10 09:28] LABS: INR 0.91; PROTIME 12.2 Sec (12.2-14.2)
[2017-05-10 09:29] LABS: PARTIAL THROMBOPLASTIN TIME 26.9 Sec (25.0-35.0)
[2017-05-10] MEDS: MISOPROSTOL 200 MCG TAB VAG SCH ×4 (10:08→22:28)
[2017-05-10] MEDS ORDERED: ACETAMINOPHEN 325 MG TAB PO PRN (20:30)
[2017-05-11] MEDS: MISOPROSTOL 200 MCG TAB VAG SCH (02:25)
[2017-05-11] MEDS: LACTATED RINGER'S 1,000 ML IV SCH (04:50)
[2017-05-11] MEDS ORDERED: FENTAnyl 2MCG/ML-ROPIV 0.2% 100 ML ONE (05:29)
[2017-05-11] MEDS ORDERED: NALOXONE (0.4 MG/ML) INJ IV PRN (07:30)
[2017-05-11] MEDS ORDERED: FENTAnyl 2MCG/ML-ROPIV 0.2% 100 ML BAG EPI SCH (07:30)
[2017-05-11] MEDS ORDERED: DIPHENHYDRAMINE 50 MG INJ IV PRN (07:30)
[2017-05-11] MEDS ORDERED: ONDANSETRON 4 MG INJ IV PRN (07:30)
--- NOTE | 2017-05-11 08:00 | HP ---
Date/Time of Note Date/Time of Note DATE: 05/11/17 TIME: 07:52 OB - History Hx of Present Free Text/Dictation 37 y.o. A1 with a Trisomy 21 fetus, per amniocentesis results, here for termination of the . Estimated Due Date: Oct 03, 2017 : 3 Para: 1 Spontaneous : 1 Care: Good Care Other Concerns: Trisomy 21 on amniocentesis after an abnormal state screening and NIPT. Past Family/Social History * Past Medical, Surgical, Family and Obstetric Histories reviewed from chart. Blood Type: O+ Rubella: immune RPR/VDRL: Negative GBS Status: Unknown HBsAG: Negative OB Admission Exam Vital Signs Vital Signs Vital Signs Date Time Temp Pulse Resp B/P Pulse Ox O2 Delivery O2 Flow Rate FiO2 05/10/17 06:44 98.2 86 18 123/62 Room Air Physical Exam HEENT: WNL Heart: Rhythm Normal Lungs: Clear Abdomen: WNL Extremities: Normal Reflexes: Normal Cervical Dilatation: None Effacement: 0% Station: -3 Membranes: Intact Last 72 hours Lab Results CBC & BMP 05/10/17 07:00 OB Assessment/Plan Reason for admission: induction of labor Other Assessment: Trisomy 21 at 19 weeks of . Plan: Induction Induction Method: per Misoprostol Protocol VIJAY MENDOZA MD May 11, 2017 07:59
--- NOTE | 2017-05-11 08:37 | PD.PPDC ---
[employer] Discharge Instruction Condition Patient Condition: Good Diet Diet: Resume Regular Diet Activity/Restrictions Activity: Normal Activity May Shower Restrictions: No Sexual Activity Nothing in the Vagina No [place] No Tampons, douche Follow-up Follow-up with Physician: 2, Week/Weeks Return to clinic for FOLLOW UP REP Instructions: Fever greater than 101 Chills Worsening abdominal pain Excessive Vaginal Bleeding OB Instructions: Depression VIJAY MENDOZA MD May 11, 2017 08:37
--- NOTE | 2017-05-11 08:43 | LDN ---
Date/Time of Note Date/Time of Note DATE: 05/11/17 TIME: 08:39 Delivery Summary Pt delivered by a non-viable fetus around 0600. Approximately 2 and 1/2 hours later the placenta delivered. Weeks of Gestation 19 weeks Placenta Delivered: Spontaneously Meconium: none Episiotomy: No Estimated blood loss: 150 Sponge & Needle done & correct: Yes All needle counts correct: Yes Any foreign bodies felt in the: No (vagina) Problems: Infant Delivery Information Sex Sex: female Apgars 1 Minute: 0 5 Minute: 0 Suctioning Nose & mouth suctioned at sofie: No Delee suction performed: No Umbilical Cord Umbilical cord with: 3 Vessels Cord presentations: no nuchal cord Cord Blood was obtained: No Mother & Baby Disposition Disposition Baby to pathology. Mom will be discharged home in a few hours. Mom & Baby to Maternity; Good: No Baby to NICU: No VIJAY MENDOZA MD May 11, 2017 08:43
== END 2017-05-11 13:45 | disposition home or self-care (01) | DRG 770 ==
LOC: L-D 06:20
PROVIDERS: ADMIT Obstetrics & Gynecology; ATTEND Obstetrics & Gynecology
PROC: 10A07ZZ Abortion of Products of Conception, Via Natural or Artificial Opening (ICD-10-PCS; principal; 2017-05-11)
DX: Z33.2 Encounter for elective termination of pregnancy (principal); Z37.1 Single stillbirth; O35.1XX0 Maternal care for (suspected) chromosomal abnormality in fetus, not applicable or unspecified; Z3A.19 19 weeks gestation of pregnancy
CPT/HCPCS: 62319; 85025; 85610; 85730; 86592; 86900; 86901; 87340; J0595; J2590; J3010; J7120

== ENCOUNTER → 2017-10-05 | Outpatient (CLI) | payer BC ==
--- NOTE | 2017-10-06 07:21 | RADRPT ---
PROCEDURE: XR Chest. CLINICAL INDICATION: PNEUMONIA TECHNIQUE: PA and Lateral views of the chest were obtained. COMPARISON: Chest 12/27/2012 FINDINGS: The heart is within normal limits in size. There is no evidence of pulmonary vascular congestion acu te lung consolidation pleural effusions and pneumothorax. IMPRESSION: No evidence of acute cardiopulmonary disease. RPTAT:AAJJ Physician Chin Date Time Electronically viewed and signed by Nam Hernández Physician on 10/06/2017 07:21 BM/
== END | disposition home or self-care (01) ==
LOC: RAD 13:47
PROVIDERS: ATTEND Internal Medicine
DX: J18.9 Pneumonia, unspecified organism (principal)
CPT/HCPCS: 71020

== ENCOUNTER 2018-01-23 22:10 | Inpatient (IN) | END 2018-01-26 19:25 | disposition home or self-care (01) | DRG 339 ==

== ENCOUNTER → 2018-04-15 | Outpatient (CLI) | END | disposition home or self-care (01) ==

== ENCOUNTER 2018-05-10 06:49 | Day surgery (SDC) | END 2018-05-10 10:07 | disposition home or self-care (01) ==

== ENCOUNTER → 2018-10-20 | Outpatient (CLI) | END | disposition home or self-care (01) ==

== ENCOUNTER → 2018-11-22 | Outpatient (CLI) | payer BC ==
[~2018-11-22] MED LIST changes: -ASCO250T96 PO; -FAMO-96 PO; -FOLI-49 PO; -METO10TA92 PO; -ONDA4TAB14 PO; -PREN-39 PO; +PROTONIX; -RANI150T9 PO; -SIME180C36 PO
== END | disposition home or self-care (01) ==
LOC: LAB 14:12
PROVIDERS: ATTEND Obstetrics & Gynecology
DX: O26.90 Pregnancy related conditions, unspecified, unspecified trimester (principal); Z3A.00 Weeks of gestation of pregnancy not specified
CPT/HCPCS: 81001; 82652; 84439; 84443; 84481; 85025; 86592; 86703; 86762; 86803; 86850; 86900; 86901; 87340

== ENCOUNTER → 2018-12-28 | Outpatient (CLI) | payer BC | END | disposition home or self-care (01) | LOC: LAB 10:12 | PROVIDERS: ATTEND Obstetrics & Gynecology | DX: Z32.00 Encounter for pregnancy test, result unknown (principal) ==

== ENCOUNTER → 2019-01-03 | Outpatient (CLI) | payer BC | END | disposition home or self-care (01) | LOC: LAB 14:23 | PROVIDERS: ATTEND Obstetrics & Gynecology | DX: O28.9 Unspecified abnormal findings on antenatal screening of mother (principal); Z3A.00 Weeks of gestation of pregnancy not specified ==

== ENCOUNTER → 2019-03-30 | Outpatient (CLI) | payer BC | END | disposition home or self-care (01) | LOC: LAB 08:29 | PROVIDERS: ATTEND Obstetrics & Gynecology | DX: O24.410 Gestational diabetes mellitus in pregnancy, diet controlled (principal); E78.5 Hyperlipidemia, unspecified; Z3A.00 Weeks of gestation of pregnancy not specified | CPT/HCPCS: 82950; 84443; 85025 ==

== ENCOUNTER 2019-06-10 07:05 | Inpatient (IN) | payer BC ==
[~2019-06-10] VITALS: Ht 162.6 cm; Wt 85.2 kg
[2019-06-10 07:38] VITALS: Ht 162.6 cm; Wt 85.2 kg
[2019-06-10 07:39] VITALS: BP 120/71; PULSE 80; RESP 20
[2019-06-10] MEDS ORDERED: LACTATED RINGER'S 1,000 ML IV SCH (07:41)
[2019-06-10] MEDS ORDERED: IBUPROFEN 600 MG TAB PO PRN (08:00)
[2019-06-10] MEDS ORDERED: OXYTOCIN 30 UNITS/LR 500 ML IV PRN ×3 (08:00→18:30)
[2019-06-10] MEDS ORDERED: METHYLERGONOVINE 0.2 MG INJ IM PRN ×2 (08:00→13:30)
[2019-06-10] MEDS ORDERED: MISOPROSTOL 200 MCG TAB PR PRN ×2 (08:00→13:30)
[2019-06-10] MEDS ORDERED: LIDOCAINE 1% (MPF) 30 ML INJ INJ PRN (08:00)
[2019-06-10] MEDS ORDERED: CARBOPROST 250 MCG INJ IM PRN ×2 (08:00→13:30)
[2019-06-10] MEDS ORDERED: BUTORPHANOL 2 MG INJ IV PRN ×2 (08:00)
[2019-06-10] MEDS ORDERED: OXYTOCIN 30 UNITS/LR 500 ML IV SCH ×2 (08:00)
[2019-06-10] MEDS ORDERED: LACTATED RINGER'S 1,000 ML IV ONE (08:30)
[2019-06-10] MEDS ORDERED: FENTAnyl 2MCG/ML-ROPIV 0.2% 100 ML ONE (08:37)
[2019-06-10] MEDS ORDERED: ONDANSETRON 4 MG INJ IV PRN (09:30)
[2019-06-10] MEDS ORDERED: NALOXONE (0.4 MG/ML) INJ IV PRN (09:30)
[2019-06-10] MEDS ORDERED: MINERAL OIL LIGHT 10 ML VIAL TOP SCH (09:30)
[2019-06-10] MEDS ORDERED: FENTAnyl 2MCG/ML-ROPIV 0.2% 100 ML BAG EPI SCH (09:30)
[2019-06-10] MEDS ORDERED: NALBUPHINE HCL (10 MG/1 ML) INJ IV PRN (09:30)
[2019-06-10] MEDS ORDERED: ZOLPIDEM 5 MG TAB PO PRN (13:30)
[2019-06-10] MEDS ORDERED: LANOLIN HPA 1 PKT TOP PRN (13:30)
[2019-06-10] MEDS ORDERED: OXYCODONE/ASPIRIN (4.88/325) TAB PO PRN ×2 (13:30)
[2019-06-10] MEDS ORDERED: BENZOCAINE 20% 56 ML SPRAY TOP PRN (13:30)
[2019-06-10] MEDS ORDERED: WITCH HAZEL/GLYCERIN PAD PR PRN (13:30)
[2019-06-10 14:00] VITALS: BP 104/57; PULSE 78; RESP 18
[2019-06-10] MEDS ORDERED: AZITHROMYCIN 500MG/NS (PMX) 250 ML IVPB ONE (14:00)
[2019-06-10 15:15] VITALS: BP 110/59; PULSE 88; RESP 18
[2019-06-10] MEDS: IBUPROFEN 600 MG TAB PO SCH ×2 (18:07→23:40)
[2019-06-10 19:30] VITALS: BP 109/57; PULSE 66; RESP 18
[2019-06-10] MEDS: SENNA/DOCUSATE NA (8.6MG/50MG) TAB PO SCH (21:25)
[2019-06-11] VITALS: BP 105/56; PULSE 63; RESP 18
[2019-06-11 03:58] VITALS: BP 113/60; PULSE 66; RESP 18
[2019-06-11] MEDS: IBUPROFEN 600 MG TAB PO SCH ×3 (06:59→18:28)
[2019-06-11 08:00] VITALS: BP 117/56; PULSE 64; RESP 20
[2019-06-11] MEDS ORDERED: PANTOPRAZOLE (EC) 40 MG TAB PO SCH (09:00)
[2019-06-11] MEDS: SENNA/DOCUSATE NA (8.6MG/50MG) TAB PO SCH (09:34)
[2019-06-11] MEDS ORDERED: DIPHTH/TET/ACEL PERTUSS (ADULT) 0.5 ML VIAL IM* ONE (10:30)
[2019-06-11 16:00] VITALS: BP 122/58; PULSE 77; RESP 18
[2019-06-12] MEDS ORDERED: DIPHTH/TET/ACEL PERTUSS (ADULT) 0.5 ML VIAL IM* ONE (09:00)
== END 2019-06-11 21:10 | disposition home or self-care (01) | DRG 807 ==
LOC: OBT 07:05 → L-D 07:08 → OBT 07:35 → L-D 07:46 → PP1 13:57
PROVIDERS: ADMIT Obstetrics & Gynecology; ATTEND Obstetrics & Gynecology
PROC: 10E0XZZ Delivery of Products of Conception, External Approach (ICD-10-PCS; principal; 2019-06-10)
DX: O69.81X0 Labor and delivery complicated by cord around neck, without compression, not applicable or unspecified (principal); Z37.0 Single live birth; Z3A.39 39 weeks gestation of pregnancy
CPT/HCPCS: 62322; 76815; 85025; 85610; 85730; 86592; 86850; 86900; 86901; 90715; G0463; J0456; J2590; J3010; J7120